=== PATIENT | female | born 2000 | race Caucasian/White ===

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

== ENCOUNTER 2023-05-31 12:28 | Observation (INO) | payer SELFPAY ==
[2023-05-31] MEDS ORDERED: Nalbuphine 10 MG/0.5 ML Syringe IVPUSH PRN (15:55)
[2023-05-31] MEDS ORDERED: Sodium Chloride 0.9% 10 ML Syringe FLUSH PRN (15:55)
[2023-05-31] MEDS ORDERED: Ampicillin 2 GM in Sodium Chloride 0.9% 100 ML IV ONE (15:55)
[2023-05-31] MEDS ORDERED: Oxytocin/Lactated Ringers 10 UNIT/1,000 ML BAG IV SCH (16:00)
[2023-05-31] MEDS ORDERED: Lactated Ringers 1,000 ML IV SCH (16:00)
[2023-05-31 16:18] LABS: BASOPHILS ABSOLUTE AUTO 0.03 K/mm3 (0.01-0.08); BASOPHILS PERCENT AUTO 0.3 % (0.1-1.2); EOSINOPHILS ABSOLUTE AUTO 0.09 K/mm3 (0.04-0.36); EOSINOPHILS PERCENT AUTO 0.9 (0.7-5.8); HEMATOCRIT 37.9 % (34.1-44.9); HEMOGLOBIN 12.5 gm/dl (11.2-15.7); IMMATURE GRAN ABSOLUTE AUTO 0.04 K/mm3 (0.00-0.10); IMMATURE GRAN PERCENT AUTO 0.4 % (<=1.0); MEAN CORPUSCULAR HEMOGLOBIN 30.3 pg (25.6-32.2); MEAN PLATELET VOLUME 10.7 fl (9.4-12.3); MONOCYTES ABSOLUTE AUTO 0.69 K/mm3 (0.24-0.36); MONOCYTES PERCENT AUTO 7.2 % (4.7-12.5); NEUTROPHILS ABSOLUTE AUTO 6.35 K/mm3 (1.56-6.13); NEUTROPHILS PERCENT AUTO 66.2 % (34.0-71.1); PLATELET COUNT,PLT 271 K/mm3 (182-369); RED BLOOD CELL COUNT 4.12 M/mm3 (3.98-5.22)
[2023-05-31] MEDS: Ampicillin 1 GM in Sodium Chloride 0.9% 100 ML IV SCH (20:40)
[2023-05-31] MEDS ORDERED: fentaNYL 100 MCG/2 ML SDV EPIDUR PRN (20:57)
[2023-05-31] MEDS ORDERED: ePHEDrine 50 MG/ML SDV IVPUSH PRN (20:57)
[2023-05-31] MEDS ORDERED: diphenhydrAMINE 50 MG/ML SDV IVPUSH PRN (20:57)
[2023-05-31] MEDS ORDERED: Bupivacaine/fentaNYL/NS 100 ML Bag EPIDUR PRN (20:57)
[2023-06-01] MEDS: Ampicillin 1 GM in Sodium Chloride 0.9% 100 ML IV SCH ×4 (00:59→11:15)
[2023-06-01] MEDS: Sodium Chloride 0.9% 10 ML Syringe FLUSH SCH ×2 (05:11→10:25)
[2023-06-01] MEDS ORDERED: Prenatal Multivitamin with Calcium/Folic Acid/Iron Tab PO SCH (09:00)
[2023-06-01] MEDS ORDERED: Ferrous Sulfate 324 MG Tab.EC PO SCH (09:00)
== END 2023-06-01 11:40 | disposition home or self-care (01) ==
LOC: JD.OBCHECK 12:28 → JD.OB 12:30 → JD.OBCHECK 15:48 → JD.OB 15:55
PROVIDERS: ADMIT Obstetrics & Gynecology; ATTEND Obstetrics & Gynecology
DX: O47.03 False labor before 37 completed weeks of gestation, third trimester (principal); O99.820 Streptococcus B carrier state complicating pregnancy; Z3A.36 36 weeks gestation of pregnancy
CPT/HCPCS: 36415; 59025; 85025; 86592; 86850; 86900; 86901; 96365; 96376; A9270; G0378; J0290; J3490; J7120

== ENCOUNTER 2023-06-06 12:37 | Inpatient (IN) | payer OTHER ==
[2023-06-06] MEDS ORDERED: Nalbuphine 10 MG/0.5 ML Syringe IVPUSH PRN (12:40)
[2023-06-06] MEDS ORDERED: Methylergonovine 0.2 MG/1 ML Amp IM PRN (12:40)
[2023-06-06] MEDS ORDERED: Acetaminophen 325 MG Tab PO PRN (12:40)
[2023-06-06] MEDS ORDERED: Misoprostol 200 MCG Tab BUCCAL PRN (12:40)
[2023-06-06] MEDS ORDERED: Ondansetron 4 MG/2 ML SDV IVPUSH PRN (12:40)
[2023-06-06] MEDS ORDERED: Sodium Chloride 0.9% 10 ML Syringe FLUSH PRN (12:40)
[2023-06-06] MEDS ORDERED: Oxytocin/Lactated Ringers 10 UNIT/1,000 ML BAG IV SCH ×2 (12:45→19:00)
[2023-06-06] MEDS ORDERED: Lactated Ringers 1,000 ML IV SCH (12:45)
[2023-06-06 13:16] LABS: HEMATOCRIT 36.7 % (34.1-44.9); HEMOGLOBIN 12.4 gm/dl (11.2-15.7); MEAN CORPUSCULAR HEMOGLOBIN 30.9 pg (25.6-32.2); MEAN CORPUSCULAR HGB CONC 33.8 g/dl (32.2-35.5); MEAN CORPUSCULAR VOLUME 91.5 fl (79.4-94.8); MEAN PLATELET VOLUME 11.1 fl (9.4-12.3); PLATELET COUNT,PLT 290 K/mm3 (182-369); RED BLOOD CELL COUNT 4.01 M/mm3 (3.98-5.22); WHITE BLOOD CELL COUNT,WBC 8.68 K/mm3 (3.98-10.04)
[2023-06-06] MEDS ORDERED: Ampicillin 2 GM in Sodium Chloride 0.9% 100 ML IV ONE (13:30)
[2023-06-06] MEDS ORDERED: Ampicillin 1 GM in Sodium Chloride 0.9% 100 ML IV SCH (17:30)
[2023-06-06] MEDS ORDERED: Sodium Chloride 0.9% 10 ML Syringe FLUSH SCH (21:00)
[2023-06-07] MEDS ORDERED: Docusate Sodium 100 MG Cap PO PRN (00:07)
[2023-06-07] MEDS ORDERED: Benzocaine/Menthol 20%-0.5% Spray 78 GM Cannister TOP PRN (00:07)
[2023-06-07] MEDS ORDERED: Witch Hazel Medicated Pads 40/Jar TOP PRN (00:07)
[2023-06-07] MEDS ORDERED: Acetaminophen 325 MG Tab PO PRN (00:07)
[2023-06-07] MEDS: Ibuprofen 600 MG Tab PO PRN ×2 (02:35→21:43)
== END 2023-06-08 12:44 | disposition home or self-care (01) | DRG 807 ==
LOC: JD.OBCHECK 12:37 → JD.OB 12:40 → JD.OBCHECK 12:40 → JD.OB 12:42 → OBSVTOIN 21:00 → JD.OB 21:01
PROVIDERS: ADMIT Obstetrics & Gynecology; ATTEND Obstetrics & Gynecology
PROC: 10E0XZZ Delivery of Products of Conception, External Approach (ICD-10-PCS; principal; 2023-06-06)
PROC: 10907ZC Drainage of Amniotic Fluid, Therapeutic from Products of Conception, Via Natural or Artificial Opening (ICD-10-PCS; 2023-06-06)
PROC: 3E033VJ Introduction of Other Hormone into Peripheral Vein, Percutaneous Approach (ICD-10-PCS; 2023-06-06)
DX: O34.33 Maternal care for cervical incompetence, third trimester (principal); Z37.0 Single live birth; O99.824 Streptococcus B carrier state complicating childbirth; Z3A.37 37 weeks gestation of pregnancy
CPT/HCPCS: 36415; 59025; 59409; 85027; 86592; 86850; 86900; 86901; A9270-GY; J0290; J2590; J3490; J7120